=== PATIENT | male | born 1985 | race Caucasian/White ===

== ENCOUNTER 2023-01-05 11:27 | Emergency (ER) | payer SELFPAY ==
[2023-01-05 11:48] VITALS: BP 145/100; PULSE 98; RESP 20; O2SAT 97; BMI 25.1
--- NOTE | 2023-01-05 12:20 | CRLHL7_ITS ---
For Patients: As a result of the Century Cures Act, medical imaging exams and procedure reports are released immediately into your electronic medical record. You may view this report before your referring provider. If you have questions, please contact your health care provider. INDICATION: Left flank pain after falling a bucket 2 days ago TECHNIQUE: Axial images were obtained from the diaphragm to the pubic symphysis. Reformats were obtained in the coronal and sagittal plane. IV Contrast: 95 cc Isovue 370 Oral Contrast: None COMPARISON: None. FINDINGS: Lower chest: Unremarkable. Liver: Unremarkable. Normal in size and attenuation. No masses. Gallbladder and bile ducts: Unremarkable. No stones or inflammation. No biliary dilatation. Spleen: Unremarkable. Normal in size without mass. Pancreas: Unremarkable. No mass or inflammation. Adrenal glands: Unremarkable. No nodules. Kidneys: Symmetric renal enhancement with subcentimeter hypodensity in the left kidney which is too small for characterization. Vasculature: Unremarkable. GI tract: No dilated loops of large or small intestine. Normal appendix. Pelvis: Mild prostatic enlargement with prostatic calcification. Bones: Unremarkable for age. IMPRESSION: No evidence of solid organ injury or fracture. Incidental findings as detailed above. Please note that all CT scans at this facility use dose modulation, iterative reconstruction, and/or weight-based dosing when appropriate to reduce radiation dose to as low as reasonably achievable. Dictated by Joe Cano MD @ 01/05/2023 2:25:42 PM (Electronically Signed)
--- NOTE | 2023-01-05 12:22 | ED.FALL ---
HPI - Fall General Date Seen: 01/05/23 Chief Complaint: Fall/Minor Trauma Stated Complaint: Kidney pain since Thursday Time Seen by Provider: 01/05/23 11:29 Source: patient Mode of arrival: ambulatory Limitations: no limitations History of Present Illness HPI Narrative: Patient is a 37-year-old male presents emergency department for left flank pain. He states couple days ago he slipped and fell landing on a 5 gal pail. The pale hit his left flank worse current pain is. Has not noticed any bruising to his back or abdomen since then. He has been taking ibuprofen for pain management the pain from a 6 down to a 1. He is concerned because the pain has been constant. No other injuries noted. No history of kidney stones. Denies lightheadedness or dizziness. Related Data Allergies Allergy/AdvReac Type Severity Reaction Status Date / Time No Known Drug Allergies Allergy Verified 01/05/23 13:26 Review of Systems Status of ROS: Reports: 10 or more systems reviewed and unremarkable except as noted in History and below PFSH PFSH Social History Smoking Status: Current every day smoker What tobacco products do you use: cigarettes Smoking packs per day: 1 Smoking cigarettes per day: 20.0 How often do you have a drink containing alcohol: 4 or more times a week How many standard drinks containing alcohol do you have on a typical day: 7 to 9 How often do you have six or more drinks on one occasion: Daily or almost daily AUDIT-C Alcohol total score: 11 Non-prescribed substance use: denies use Exam Narrative: Exam Narrative: Const: Well-nourished, Well-developed, in mild distress Eyes: PERRL, no conjunctival injection, and symmetrical lids HENT: Atraumatic external nose and ears. Moist mucous membranes. Neck: Symmetric, trachea midline, No thyromegaly. CVS: RRR, No murmurs or gallops. Peripheral pulses 2+ and equal in all extremities RESP: Unlabored respiratory effort. Clear to auscultation bilaterally. GI: Nontender/Nondistended, No rebound or guarding. MSK:Extremities w/o deformity, Normal Active ROM Skin: Warm, Dry. No rashes or lesions. Neuro: Normal Muscle tone, No focal neurological deficits. Psych: Awake, Alert, & Oriented x3. Appropriate mood and affect. Const: Vital Signs, click to edit/add: Vital Signs - 24 hr 01/05/23 11:48 01/05/23 14:09 Pulse Rate [Right Pulse Oximeter] 98 75 Respiratory Rate 20 20 Blood Pressure [Ri ght Upper Arm] 145/100 H 135/91 H Pulse Oximetry 97 97 Oxygen Delivery Me thod Room Air Room Air Course Vital Signs Vital signs: Initial Vital Signs Pulse Rate 98 01/05/23 11:48 Pulse Rhythm Regular 01/05/23 11:48 Respiratory Rate 20 01/05/23 11:48 Blood Pressure 145/100 H 01/05/23 11:48 Blood Pressure Mean 115 H 01/05/23 11:48 Blood Pressure Position Sitting 01/05/23 11:48 Pulse Oximetry 97 01/05/23 11:48 Oxygen Delivery Method Room Air 01/05/23 11:48 Vital Signs Pulse Rate 98 01/05/23 11:48 Respiratory Rate 20 01/05/23 11:48 Blood Pressure 145/100 H 01/05/23 11:48 Pulse Oximetry 97 01/05/23 11:48 Oxygen Delivery Method Room Air 01/05/23 11:48 Pulse Rate 75 01/05/23 14:09 Respiratory Rate 20 01/05/23 14:09 Blood Pressure 135/91 H 01/05/23 14:09 Pulse Oximetry 97 01/05/23 14:09 Oxygen Delivery Method Room Air 01/05/23 14:09 MDM - Fall MDM Narrative Medical decision making narrative: Patient is a 37-year-old male presenting for left flank pain after a fall 2 days ago onto a 5 gal pail. Pain is well controlled with ibuprofen. While this time is most likely just has a muscle contusion could be a kidney stone and I want make sure there was no internal bleeding. I do not see any bruising on the back car abdomen. No signs of pooling blood. He is not having lightheadedness or dizziness and has stable vital signs. Lab work returns showing no concerning abnormalities. CT scan was done and showed no acute intra-abdominal abnormalities. No signs of intra-abdominal bleeding. Symptoms are most likely a muscle contusion causing his pain and he can be discharged home. He is agreeable to this plan Lab Data Labs: Lab Results 01/05/23 Range/Units 12:30 WBC 8.45 (4.50-11.00) K/uL RBC 4.59 (4.30-5.90) m/uL Hgb 15.7 (13.5-17.5) gm/dL Hct 46.1 (37.0-53.0) % MCV 100 (80-100) fL MCH 34 (26-34) pg MCHC 34 (32-36) gm/dL RDW Coeff of Fani 11.5 (11.5-15.5) % Plt Count 324 (140-440) K/uL Neut % (Auto) 77.3 H (42.0-72.0) % Lymph % (Auto) 15.7 L (20-44) % Hubbard % (Auto) 5.8 (0.0-11.0) % Eos % (Auto) 0.6 (0.0-7.0) % Baso % (Auto) 0.4 (0.0-3.0) % Neut # (Auto) 6.50 (1.7-7.0) K/uL Lymph # (Auto) 1.30 (0.90-2.90) K/uL Hubbard # (Auto) 0.50 (0.00-0.90) K/UL Eos # (Auto) 0.05 (0.00-0.50) K/uL Baso # (Auto) 0.03 (0.00-0.30) K/uL Abs Immat Gran (auto) 0.02 (0.00-0.30) K/uL Imm/Tot Granulo (auto) 0.2 % Sodium 138 (135-149) mmol/L Potassium 4.4 (3.6-5.1) mmol/L Chloride 103 (96-114) mmol/L Carbon Dioxide 26 (20-32) mmol/L Anion Gap 9 (7-15) mEq/L BUN 11 (5-24) mg/dL Creatinine 0.7 (0.5-1.5) mg/dL Estimated Creat Clear 157.05 Estimated GFR 121 ml/min Glucose 103 (60-115) mg/dL Calcium 9.2 (8.4-10.6) mg/dL Imaging Data CT scan abdomen pelvis: Radiologist's impression: INDICATION: Left flank pain after falling a bucket 2 days ago TECHNIQUE: Axial images were obtained from the diaphragm to the pubic symphysis. Reformats were obtained in the coronal and sagittal plane. IV Contrast: 95 cc Isovue 370 Oral Contrast: None COMPARISON: None. FINDINGS: Lower chest: Unremarkable. Liver: Unremarkable. Normal in size and attenuation. No masses. Gallbladder and bile ducts: Unremarkable. No stones or inflammation. No biliary dilatation. Spleen: Unremarkable. Normal in size without mass. Pancreas: Unremarkable. No mass or inflammation. Adrenal glands: Unremarkable. No nodules. Kidneys: Symmetric renal enhancement with subcentimeter hypodensity in the left kidney which is too small for characterization. Vasculature: Unremarkable. GI tract: No dilated loops of large or small intestine. Normal appendix. Pelvis: Mild prostatic enlargement with prostatic calcification. Bones: Unremarkable for age. IMPRESSION: No evidence of solid organ injury or fracture. Incidental findings as detailed above. Please note that all CT scans at this facility use dose modulation, iterative reconstruction, and/or weight-based dosing when appropriate to reduce radiation dose to as low as reasonably achievable. Dictated by Joe Cano MD @ 01/05/2023 2:25:42 PM Discharge Plan Discharge Clinical Impression: Contusion Patient Disposition: Home, Self-Care Condition: Stable Instructions: Bone Bruise (ED) Additional Instructions: Take Tylenol and ibuprofen for pain. Return for new worsening symptoms. Does not appear to be any intra abdominal injuries and the pain is most likely a muscle or bone bruise Follow Up/Referrals: Provider,Not a Local [Primary Care Provider] - Stand Alone Forms: [employer] Info Instructions
[2023-01-05 12:40] LABS: Basophils Absolute Auto 0.03 K/uL (0.00-0.30); Basophils Percent Auto 0.4 % (0.0-3.0); Eosinophils Absolute Auto 0.05 K/uL (0.00-0.50); Eosinophils Percent Auto 0.6 % (0.0-7.0); Hematocrit 46.1 % (37.0-53.0); Hemoglobin* 15.7 gm/dL (13.5-17.5); Immature Granulocytes Abs Auto 0.02 K/uL (0.00-0.30); Immature Granulocytes Pct Auto 0.2 %; Lymphocytes Percent Auto 15.7 % (20-44); Mean Corpuscular HGB Conc 34 gm/dL (32-36); Mean Corpuscular Hemoglobin 34 pg (26-34); Mean Corpuscular Volume 100 fL (80-100); Monocytes Percent Auto 5.8 % (0.0-11.0); Neutrophils Percent Auto 77.3 % (42.0-72.0); Platelet Count* 324 K/uL (140-440); RDW Coefficient of Variation % 11.5 % (11.5-15.5); Red Blood Count 4.59 m/uL (4.30-5.90); White Blood Count* 8.45 K/uL (4.50-11.00)
[2023-01-05 12:44] LABS: Slide Review Reflex No
[2023-01-05 12:54] LABS: Chloride* 103 mmol/L (96-114); Sodium* 138 mmol/L (135-149)
[2023-01-05 12:55] LABS: Potassium* 4.4 mmol/L (3.6-5.1)
[2023-01-05 12:57] LABS: Anion Gap 9 mEq/L (7-15); Carbon Dioxide* 26 mmol/L (20-32); Creatinine* 0.7 mg/dL (0.5-1.5); Est. Creatinine Clearance* 157.05; Estimated Glomerular Filt Rate 121 ml/min
[2023-01-05 12:58] LABS: Blood Urea Nitrogen* 11 mg/dL (5-24); Calcium* 9.2 mg/dL (8.4-10.6); Glucose* 103 mg/dL (60-115)
[2023-01-05 14:09] VITALS: BP 135/91; PULSE 75; RESP 20; O2SAT 97
== END 2023-01-05 14:49 | disposition home or self-care (01) ==
PROVIDERS: Emergency Provider Student in an Organized Health Care Education/Training Program
DX: S30.1XXA Contusion of abdominal wall, initial encounter (principal)
CPT/HCPCS: 36415; 74177; 80048; 85025; 99283; 99285; Q9967